=== PATIENT | male | born 1985 | race Caucasian/White ===

== ENCOUNTER 2020-01-23 06:53 | Outpatient (NON) | payer OTHER, SELFPAY ==
[2020-01-23 21:00] LABS: SARS-CoV-2 RNA PCR Positive
== END 2020-01-23 06:54 ==
PROVIDERS: PCP Family Medicine; Visit Provider Family Medicine
DX: U07.1 COVID-19 (principal)
CPT/HCPCS: 87635; C9803; U0003

== ENCOUNTER 2021-09-13 17:39 | Emergency (ER) | payer OTHER, SELFPAY ==
[2021-09-13 17:49] VITALS: BP 164/93; PULSE 88; RESP 18; TEMP 36.5; O2SAT 97
--- NOTE | 2021-09-13 17:51 | ED.EAR ---
HPI - Ear Problem General Chief complaint: Ear Stated complaint: Lt Ear Irritation Time Seen by Provider: 09/13/21 17:51 Source: patient Mode of arrival: ambulatory Limitations: no limitations History of Present Illness HPI Narrative: 36 yo M presents with c/o pain and decreased hearing to L ear becoming progressively worse since last week. Reports crackling to R ear but no pain. Denies congestion, runny nose, sinus symptoms. Afebrile. All systems reviewed and negative except as noted above. Related Data Allergies Allergy/AdvReac Type Severity Reaction Status Date / Time Penicillins Allergy Intermediate Rash Verified 09/13/21 17:40 Review of Systems Review of Systems: CONSTITUTIONAL: Denies fever, chills, or sweats. EYES: Denies visual changes, redness, or discharge. ENT: Denies rhinorrhea, congestion, sore throat. Reports pain and decreased hearing to left ear. Crackling to right ear. CARDIOVASCULAR: Denies chest pain, palpitations, or edema. RESPIRATORY: Denies cough or dyspnea. GASTROINTESTINAL: Denies abdominal pain, nausea, vomiting, or diarrhea. GENITOURINARY: Denies dysuria or hematuria. SKIN: Denies rash or itching. MUSCULOSKELETAL: Denies back pain, joint pain, or myalgia. NEUROLOGIC: Denies headache, numbness, or weakness. PSYCHIATRIC: Denies anxiety or depression. All other systems reviewed are negative, except as documented in HPI. [facility] Past Medical History Medical History Acute sinusitis, unspecified Dietary counseling and surveillance (03/14/18) Epididymal mass Epididymitis Influenza Snoring Surgical History Surgical History H/O wisdom tooth extraction Family History Family History Father Hypertension Family history of diabetes mellitus in first degree relative Mother No problems noted. Sibling No problems noted. 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 Gender identity (if verbalized by the patient): Male Comments At time of signature, agree with nursing past medical, surgical, social and family history. There is no relevant family history pertinent to the presenting complaint. Exam Narrative: GENERAL: This is a well-nourished, well-developed patient, in no apparent distress. HEAD: normocephalic, atraumatic. EYES: PERRL. Sclera clear/white. Vision is grossly intact. EARS: External ears normal, auditory canals clear and without drainage. Left TM not visible due to wax impaction. Irrigated with warm water and lighted curette, TM erythematous and retracted. Right TM is normal. Small amount of wax to right ear canal. NOSE: External nose normal NECK: Neck supple, non-tender without lymphadenopathy, masses or thyromegaly. CARDIOVASCULAR: Regular rate and rhythm without murmurs, gallops, or rubs. RESPIRATORY: Clear to auscultation. Breath sounds equal bilaterally. No wheezes, rales, or rhonchi. SKIN: warm, Dry, intact with no suspicious lesions or rash, good texture and turgor. NEURO: awake, alert, and oriented to person, place and time. There were no obvious focal neurologic abnormalities. EXTREMITIES: No joint tenderness, effusion, or edema noted. Course Course Level of Care: Express Care Visit Vital Signs Vital signs: Vital Signs Temperature 36.5 C 09/13/21 17:49 Pulse Rate 88 09/13/21 17:49 Respiratory Rate 18 09/13/21 17:49 Blood Pressure 164/93 H 09/13/21 17:49 Pulse Oximetry 97 09/13/21 17:49 Oxygen Delivery Room Air 09/13/21 17:49 Temperature 36.5 C 09/13/21 17:49 Pulse Rate 88 09/13/21 17:49 Re
== END 2021-09-13 18:08 | disposition home or self-care (01) ==
PROVIDERS: Emergency Provider Nurse Practitioner Family; PCP Family Medicine
DX: H66.92 Otitis media, unspecified, left ear (principal); H61.23 Impacted cerumen, bilateral
CPT/HCPCS: 69210; 99213; G0463

== ENCOUNTER 2022-09-29 09:25 | Outpatient (CLI) | payer OTHER, SELFPAY ==
--- NOTE | ~2022-09-29 | XR_ITS ---
Supine and upright views of the abdomen Clinical history: Renal stone Findings: Bowel gas pattern is nonspecific. No evidence for obstruction or free air. Bilateral renal stones are present, largest at the right lower pole measuring 7 mm. Probable calcified splenic granul omas noted. Probable calcified pelvic phleboliths. Osseous structures are intact. Impression: Bilateral nephrolithiasis, as detailed above. Reviewed, dictated and finalized at [facility]. Impression: Bilateral nephrolithiasis, as detailed above.
== END 2022-09-29 09:26 | disposition home or self-care (01) ==
PROVIDERS: PCP Family Medicine; Visit Provider Urology
DX: N20.0 Calculus of kidney (principal)
CPT/HCPCS: 74018

== ENCOUNTER 2022-12-13 09:40 | Outpatient (CLI) | payer OTHER, SELFPAY ==
--- NOTE | 2023-01-02 11:59 | WPDHOMESLEEP ---
Sleep Study - Home Unattended Date of Study: 12/13/22 Ordering Provider: Jorge Arteaga MD Interpreting Provider: Michelle Alvarado MD Home Sleep Study Type: Watch PAT Height: 1.83 m Weight: 136.078 kg Body Mass Index: 40.6 Neck Circumference (inches): 19 [place]: 10 Reason for Sleep Study Hypersomnolence Sleep History Kendell Turner is a 37-year-old man with loud snoring and occasional witnessed apneas. His medical comorbidities include hypertension and sexual dysfunction, takes tadalafil. He never awakens from sleep feeling short of breath. He occasionally wakes at night with heartburn, belching or coughing.??He constantly snores, and constantly snores loudly enough that others complain. He never has trouble sleeping when he has a cold. He never wakes up gasping for breath during the night. He never has breathing problems at night reports to him by others although he does report witnessed apneas. He never sweats excessively at night. He never notices his heart pounding or beating irregularly during the night. He occasionally falls asleep during the day. He never falls asleep involuntarily, never falls asleep while driving. He never experiences loss of muscle tone with strong emotion. He never has daytime difficulty at work due to excessive sleepiness, he is an insulator. He never feels paralyzed on waking or falling asleep. He never experiences vivid dreams upon waking or falling asleep. He never feels afraid of going to sleep. He never has nightmares. He occasionally recalls his dreams. He occasionally has thoughts racing through his mind. He occasionally feels sad or depressed. He never feels anxiety. He frequently notices parts of his body jerk. He never kicks during the night. He never feels crawling or aching feelings in his legs. He never feels leg pain at night. He never has morning jaw pain, occasionally grinds his teeth at night. He occasionally feels bothered by pain during the day, never awakened by pain during the night. He occasionally wakes up feeling stiff in the morning, and he occasionally wakes feeling sore or achy. He occasionally awakens with pain in his neck, spine, or joints. Normal bedtime is 11:00 p.m., falling asleep within 2-3 minute. He wakes once at night, goes to the bathroom and is able to return to sleep within 2-3 minutes. This awakening occurs in the middle of the night. He typically gets 6 hours of sleep per night. His wake up time is 6:00 a.m.. On weekends, bedtime is the same, 11:00 p.m. but he gets additional sleep, wakes at 9:00 a.m. He takes short naps lasting 10-15 minutes, but short naps are not refreshing. He feels better in the afternoon compared to other times of day. He frequently awakens feeling refreshed but frequently has daytime sleepiness. Occasionally he has difficulties with sexual function. Habits:??Tobacco: Never Caffeine: 5 servings per day. Alcohol: none. Recreational substances: none PMFSH Past Medical History Medical History Acute sinusitis, unspecified Dietary counseling and surveillance (03/14/18) Epididymal mass Epididymitis Essential hypertension Influenza Snoring Surgical History Surgical History H/O wisdom tooth extraction Family History Family History Father Hypertension Family history of diabetes mellitus in first degree relative Diabetes mellitus Mother No problems noted. Sibling No problems noted. Other Cerebrovascular accident Social History Social History Smoking status: Never smoker Second hand tobacco smoke exposure: No Alcohol intake: current Substance use: never Substance use type: does not use Lack of Transportation: No Lack of Food: Never True Current Housing: I Have Housing Concern
[2023-01-02 12:01] VITALS: BMI 40.6
== END 2022-12-14 12:46 | disposition home or self-care (01) ==
PROVIDERS: PCP Family Medicine; Visit Provider Family Medicine
DX: G47.10 Hypersomnia, unspecified (principal); G47.33 Obstructive sleep apnea (adult) (pediatric)
CPT/HCPCS: 95800

== ENCOUNTER 2023-03-24 08:15 | Outpatient (CLI) | payer OTHER, SELFPAY ==
--- NOTE | 2023-04-10 18:03 | WPDSLEEPSTUD ---
Sleep Study Date of Study: 03/24/23 Ordering Provider: Jorge Arteaga MD Interpreting Physician: Courtney Juares DO Sleep Study Type: CPAP Titration Height: 1.83 m Weight: 136.078 kg Body Mass Index: 40.6 Neck Circumference (inches): 19 [place]: 10 Reason for Sleep Study The patient had a WatchPAT home sleep test on 12/13/2022 that showed an overall AHI of 43.8 Sleep History Kendell Turner is a 37-year-old man with loud snoring and occasional witnessed apneas.? His medical comorbidities include hypertension and sexual dysfunction, takes tadalafil. He never awakens from sleep feeling short of breath. He occasionally wakes at night with heartburn, belching or coughing.??He constantly snores, and constantly snores loudly enough that others complain. He never has trouble sleeping when he has a cold. He never wakes up gasping for breath during the night. He never has breathing problems at night reports to him by others although he does report witnessed apneas. He never sweats excessively at night. He never notices his heart pounding or beating irregularly during the night. He occasionally falls asleep during the day. He never falls asleep involuntarily, never falls asleep while driving. He never experiences loss of muscle tone with strong emotion. He never has daytime difficulty at work due to excessive sleepiness, he is an insulator.? He never feels paralyzed on waking or falling asleep. He never experiences vivid dreams upon waking or falling asleep. He never feels afraid of going to sleep. He never has nightmares. He occasionally recalls his dreams. He occasionally has thoughts racing through his mind. He occasionally feels sad or depressed. He never feels anxiety. He frequently notices parts of his body jerk. He?never kicks?during the night. He never feels crawling or aching feelings?in his legs. He never feels leg pain at night. He never has morning jaw pain, occasionally grinds his teeth at night.? He occasionally feels bothered by pain during the day, never awakened by pain during the night. He occasionally wakes up feeling stiff in the morning, and he occasionally wakes feeling sore or achy.? He occasionally awakens with pain in his neck, spine, or joints. Normal bedtime is 11:00 p.m., falling asleep within 2-3 minute. He wakes once at night, goes to the bathroom and is able to return to sleep within 2-3 minutes.? This awakening occurs in the middle of the night.? He typically gets 6 hours of sleep per night. His wake up time is 6:00 a.m..? On weekends, bedtime is the same, 11:00 p.m. but he gets additional sleep, wakes at 9:00 a.m.? He takes short naps lasting 10-15 minutes, but short naps are not refreshing.? He feels better in the afternoon compared to other times of day.? He frequently awakens feeling refreshed but frequently has daytime sleepiness.? Occasionally he has difficulties with sexual function. Habits:??Tobacco:? Never ? ? Caffeine: 5 servings per day. ? Alcohol: none. ? ? Recreational substances: none PMFSH Past Medical History Medical History Acute sinusitis, unspecified Dietary counseling and surveillance (03/14/18) Epididymal mass Epididymitis Essential hypertension Influenza Snoring Surgical History Surgical History H/O wisdom tooth extraction Family History Family History Father Hypertension Family history of diabetes mellitus in first degree relative Diabetes mellitus Mother No problems noted. Sibling No problems noted. Other Cerebrovascular accident Social History Social History Smoking status: Never smoker Second hand tobacco smoke exposure: No Alcohol intake: current Substance use: never Substance use type: does not use Lack of Transportation: No
[2023-04-10 19:11] VITALS: BMI 40.6
== END 2023-03-25 07:14 | disposition home or self-care (01) ==
LOC: ANHCSM 08:36
PROVIDERS: PCP Family Medicine; Visit Provider Family Medicine
DX: G47.33 Obstructive sleep apnea (adult) (pediatric) (principal)
CPT/HCPCS: 95811